=== PATIENT | male | born 1940 | race Caucasian/White ===

== ENCOUNTER 2018-05-17 10:25 | Emergency (ER) | payer OTHER, MEDICARE ==
[~2018-05-17] VITALS: Ht 180.3 cm; Wt 88.5 kg
--- NOTE | 2018-05-17 11:11 | ED GENERAL ADULT ---
History of Present Illness General Chief Complaint: General Adult Stated Complaint: CONSTIPATION AND LAST BM 6 DAYS AGO Source: patient Exam Limitations: no limitations Vital Signs & Intake/Output Vital Signs & Intake/Output Vital Signs Date Time Temp Pulse Resp B/P B/P Pulse O2 O2 Flow FiO2 Mean Ox Delivery Rate 05/17 1315 98.1 90 18 111/58 99 Room Air 05/17 1137 95 Room Air 05/17 1037 98.4 111 15 136/79 95 Room Air Room Air Allergies Coded Allergies: No Known Allergies (05/17/18) Reconcile Medications No Known Home Medications Triage Note: PT TO ED FOR CONSTIPATION X 6 DAYS. PT HX OF PANCREATIC CANCER , BUT NOT ON ANY CHEMO RIGHT NOW. DENIES G/U SYMPTOMS. PT STARTED OXYCODONE 6 DAYS AGO AND THINKS SYMPTOMS ARE FROM THAT. Triage Nurses Notes Reviewed? yes HPI: This is a 77-year-old male with history of insulin-dependent diabetes, hyperlipidemia, recently diagnosed pancreatic cancer presenting with 6 days of constipation in the setting of recently initiated oxycodone. Patient denies any new or worsening pain. Denies any vomiting. He endorses passing gas daily. He has had normal appetite with good p.o. intake. He describes pain is postprandial, right-sided, nonradiating, similar in quality for the past month or so and related "to my cancer pain ". He was taking MiraLAX at home, one "capsule "daily for the past few days in order to alleviate the constipation. He denies any rectal pain or rectal bleeding. He states that he has normal colonoscopy testing in the past. Denies any chest pain or difficulty breathing. Has had no lightheadedness or headache or visual disturbance. (Agustin Deluca MD) Past History Travel History Traveled to [place] past 21 day No Medical History Any Pertinent Medical History? 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 No (Agustin Deluca MD) Review of Systems Review of Systems Constitutional: Reports: no symptoms. EENTM: Reports: no symptoms. Respiratory: Reports: no symptoms. Cardiovascular: Reports: no symptoms. GI: Reports: see HPI. Genitourinary: Reports: no symptoms. Musculoskeletal: Reports: no symptoms. Skin: Reports: no symptoms. Neurological/Psychological: Reports: no symptoms. Hematologic/Endocrine: Reports: no symptoms. Immunologic/Allergic: Reports: no symptoms. (Agustin Deluca MD) Physical Exam Physical Exam General Appearance: well developed/nourished, no apparent distress, alert, awake , comfortable Head: atraumatic, normal appearance Eyes: Bilateral: normal appearance, PERRL, EOMI. Ears, Nose, Throat: normal pharynx, normal ENT inspection Neck: normal inspection, supple, full range of motion Respiratory: normal breath sounds, chest non-tender, no respiratory distress, lungs clear Cardiovascular: regular rate/rhythm, normal peripheral pulses Gastrointestinal: normal bowel sounds, soft, non-tender Skin: intact, normal color, warm/dry Core Measures ACS in differential dx? No CVA/TIA Diagnosis: No Sepsis Present: No Sepsis Focused Exam Completed? No (Agustin Deluca MD) Progress Differential Diagnoses I considered the following diagnoses in my evaluation of the patient: Clinically suspect opiate-induced constipation in this patient based on exam, history, and presentation. Low suspicion for acute obstructive process given soft, benign abdominal exam with lack of worsening abdominal pain and ongoing passing of flatus. Low suspicion for severe metabolic derangement. Low suspicion for other acute infectious process. Pain likely secondary to ongoing cancer pain which is well controlled and absent on time of evaluation. Plan of Care: Soft, brown, guaiac-negative stool in vault; no stool for digital disimpaction. Plan for Fleet enema, reassessment, likely discharge home with return precautions and follow-up instructions. Patient has bowel movement following Fleet enema. Well-appearing on reassessment. Discharge home. Initial ED EKG: none (Agustin Deluca MD) Departure Departure Time of Disposition: 1300 Disposition: HOME OR SELF CARE Condition: Stable Clinical Impression Primary Impression: Constipation due to opioid therapy Referrals: Jenna NAVA,Zak Metcalf (PCP/Family) Additional Instructions: Thank you for coming to [facility] today. Please return to the emergency department if you develop worsening pain or ongoing constipation or difficulty with going to the bathroom. Likewise if you develop any nausea or vomiting or diarrhea please return to the emergency department. As we discussed, follow-up with your primary doctor this week. Departure Forms: Customer Survey General Discharge Information Prescriptions: Current Visit Scripts No Known Home Medications (Agustin Deluca MD) Resident Co-Sign Statement Statement: ED Attending supervision documentation- [] I saw and evaluated the patient. I have also reviewed all the pertinent lab results and diagnostic results. I agree with the findings and the plan of care as documented in the Resident's documentation. [x] I have reviewed the ED Record and agree with the Resident's documentation. [] Additions or exceptions (if any) to the Resident's note and plan are summarized below: [] (Karri Starks DO) Critical Care Note Critical Care Note Critical Care Time: non-applicable (Agustin Deluca MD)
[2018-05-17 13:15] VITALS: BP 111/58
== END 2018-05-17 13:25 ==
LOC: ERH 10:25
DX: K59.03 Drug induced constipation (principal); T40.605A Adverse effect of unspecified narcotics, initial encounter

== ENCOUNTER → 2018-06-03 | Day surgery (SDC) | payer OTHER, MEDICARE ==
[~2018-06-03] VITALS: Ht 180.3 cm; Wt 86.6 kg
[~2018-06-03] MED LIST: ALLOPURINOL300 M1 PO; HUMALOG MI100 UNIT/3 SC; LISINOPRIL20 M1 PO; METFORMIN HCL500 M3 PO; NYSTATIN100000 UNI PO; PIOGLITAZONE HC45 M1 PO; SIMVASTATIN20 M2 PO
--- NOTE | 2018-06-03 10:32 | RADIOLOGY REPORT ---
EXAMINATION: XR PORTABLE CHEST PORT-A-CATH INSERTION OR CLINICAL INFORMATION: 77-year-old male status post Port-A-Cath insertion in the operating room. COMPARISON: Chest radiograph done on 08/03/2011. TECHNIQUE: Portable frontal view of the chest was obtained. FINDINGS: Interval placement of a right subclavian Port-A-Cath is seen with its tip seen projecting at the cavoatrial junction. There is no evidence of any right-sided pneumothorax. Mild nodularity is noted at the left mid to lower lung field and also at the right upper lung field, new since the prior study. There is no pleural effusion present. The cardiomediastinal silhouette is within normal limits. The visualized upper abdomen is unremarkable. IMPRESSION: 1. Status post right subclavian Port-A-Cath placement performed in the operating room showing its tip at the cavoatrial junction and no evidence of any right-sided pneumothorax. 2. Subtle nodularities are noted at the right upper and left mid to lower lung field, not optimally characterized, new since 08/03/2011.
--- NOTE | 2018-06-03 11:34 | Operative Report ---
Operative/Inv Procedure Report Surgery Date: 06/03/18 Name of Procedure: Fluoroscopic guided insertion of tunneled Port-A-Cath via right subclavian vein Pre-Operative Diagnosis: Lung cancer Post-Operative Diagnosis: Same Estimated Blood Loss: scant Surgeon/Graphics Edit Technician: Osvaldo NAVA,Lloyd Swanson Anesthesia: local monitored anesthesi Operative/Procedure Note Note: With the patient supine on the OR table, right arm tucked, head not turned, after induction of MAC sedation, the patient's right subclavian area, including the shoulder neck and contralateral chest, were prepped and draped in the usual sterile fashion. After injecting local anesthetic in the right infraclavicular area, skin, subcutaneous to the clavicle, and inferiorly where the pocket will be, the patient was repositioned to Trendelenburg. Putting your right index finger on the sternal notch and thumb pressing down lateral to the curve of the clavicle, I made a puncture through the skin with the 15 blade scalpel next to thumb. Then along that line towards the tip of your finger, advance a large- bore needle, bevel towards the feet, on a slip tip 10 mL syringe barrel flat against the deltoid, advancing to bone and then "walking" it down just under the clavicle keeping the needle flat as possible, while maintaining vacuum with the plunger, accessing the subclavian venous blood, then replacing the syringe with a wire, sliding in with minimum resistance, confirming the position with the C- arm fluoroscope, making sure the wire is traveling down along the cava towards the right side of the heart and not up or across, and no ectopy. Next I secured the wire to the drape, measured (approximately 23 cm), cut and attached the catheter to the port. Approximately 3-4 cm inferior to the stick site a 2-1/2 cm long skin incision was made with a 15 blade scalpel along Langers lines. It was deepened with cautery and a space was developed inferiorly under the subcutaneous layer. The Port-A-Cath was laid in there and secured in [address] with 2-0 Prolene through the holes in the port, the sutures were kept loose on snaps at this point. Next the catheter was tunneled up subcutaneously with a snap and brought out through the stick site next to the wire. Then the dilator only, was passed over the wire until you could feel it slide under the clavicle, then removed, then re-advanced this time with the peel-away sheath over it, while advancing simultaneously pull the dilator out and advance the sheath, eventually pulling out the dilator and wire completely. Then the catheter was put into the sheath as far as it'll go then while holding that knuckle down with DeBakey's, gently peel-away the sheath with your patient observation assistant. Now the correct position of the catheter was confirmed with the fluoroscope, using a Cuellar needle and heparinized saline solution, the catheter was first aspirated then flushed with approximately 3 mL's, with minimal resistance. The patient was repositioned to neutral, after tying down the 2 Prolenes, the larger incision was closed in layers, 3-0 Vicryl deep and 4-0 subcuticular Monocryl for the skin, and one subcuticular Monocryl for the stick site. Both areas were covered with Mastisol Steri-Strips Telfa and Tegaderm. Chest x-ray was ordered to be done in the recovery room. Lap and sponge counts were correct. Wound expectancy was clean, IV fluids crystalloid, complications none, patient tolerated the procedure well was awakened and returned to the recovery room in satisfactory condition.
== END ==
LOC: STS 02:23
DX: C25.9 Malignant neoplasm of pancreas, unspecified (principal); C78.7 Secondary malignant neoplasm of liver and intrahepatic bile duct; C34.90 Malignant neoplasm of unspecified part of unspecified bronchus or lung; E11.9 Type 2 diabetes mellitus without complications; Z79.84 Long term (current) use of oral hypoglycemic drugs; Z87.891 Personal history of nicotine dependence; I10 Essential (primary) hypertension; M10.9 Gout, unspecified
CPT/HCPCS: 71045; 76000; C1751; J0690; J1644; J2250; J3490